=== PATIENT | female | born 1990 | race American Indian/Alaskan Native ===

== ENCOUNTER 2018-05-31 17:07 | Emergency (ER) | payer MEDICAID, OTHER ==
[2018-05-31 17:39] VITALS: BP 116/73; PULSE 77; RESP 16; TEMP 98.3; O2SAT 98
--- NOTE | 2018-05-31 17:51 | ED PDOC ---
HPI: Skin/Bite Injury Time Seen by Provider: 05/31/18 17:40 Chief Complaint (Nursing): Abnormal Skin Integrity Chief Complaint (Provider): Dryness and Discoloration to Face History Per: Patient History/Exam Limitations: no limitations Onset/Duration Of Symptoms: Days (x1 week) Current Symptoms Are (Timing): Still Present Additional Complaint(s): 27 year old female with pmhx of eczema presents to the ED for evaluation of dryness and itchiness to her face for the past week associated with dark discoloration around the sides of her lips. She notes that she has had this before and her PMD usually prescribes Hydrocortisone Valerate, but he recently and she has been unable to find a new doctor. Patient is requesting a script, and denies any other complaints. PMD: none provided Past Medical History Reviewed: Historical Data, Nursing Documentation, Vital Signs Vital Signs: Last Vital Signs Temp 98.3 F 05/31/18 17:39 Pulse 77 05/31/18 17:39 Resp 16 05/31/18 17:39 BP 116/73 05/31/18 17:39 Pulse Ox 98 05/31/18 17:39 - Medical History Other PMH: eczema - Surgical History Surgical History: No Surg Hx - Family History Family History: States: Unknown Family Hx - Immunization History Hx Tetanus Toxoid Vaccination: No Hx Pneumococcal Vaccination: No - Home Medications Home Medications: Ambulatory Orders Medication Instructions Recorded Ibuprofen [Motrin] 600 mg PO TID 12/05/14 oxyCODONE/Acetaminophen [Percocet 1 ea PO Q6 PRN #8 tab 12/06/14 5/325 mg Tab] Nitrofurantoin Macrocrystal 100 mg PO BID 09/05/15 [Nitrofurantoin] Hydrocortisone Valerate 15 gm TP DAILY #1 tube 05/31/18 - Allergies Allergies/Adverse Reactions: Allergies Allergy/AdvReac Type Severity Reaction Status Date / Time No Known Allergies Allergy Verified 12/05/14 21:01 Review of Systems ROS Statement: Except As Marked, All Systems Reviewed And Found Negative Skin: Positive for: Other (dryness and itchiness to face with dark pigmentation) Physical Exam - Reviewed Nursing Documentation Reviewed: Yes Vital Signs Reviewed: Yes - Physical Exam Appears: Positive for: No Acute Distress Head Exam: Positive for: ATRAUMATIC, NORMOCEPHALIC Skin: Positive for: Rash (dry skin noted to face - around mouth and cheeks with dark pigmentation; otherwise no break in skin integrity) Cardiovascular/Chest: Positive for: Regular Rate, Rhythm Respiratory: Positive for: Normal Breath Sounds. Negative for: Respiratory Distress Neurological/Psych: Positive for: Awake, Alert, Oriented (x3) - ECG O2 Sat by Pulse Oximetry: 98 (RA) Pulse Ox Interpretation: Normal Medical Decision Making Medical Decision Making: Time: 1744 Initial Impression: eczema Initial Plan: --Script for Hydrocortisone Valerate given and advised to follow up with a tube teller. Return parameters discussed and patient verbalized agreement and understanding. All questions answered. Stable for discharge. Scribe Attestation: Documented by Marichuy Moy, acting as a scribe for Anne Velazco NP. Provider Scribe Attestation: All medical record entries made by the Scribe were at my direction and personally dictated by me. I have reviewed the chart and agree that the record accurately reflects my personal performance of the history, physical exam, medical decision making, and the department course for this patient. I have also personally directed, reviewed, and agree with the discharge instructions and disposition. Disposition - Clinical Impression Clinical Impression: Eczema - Patient ED Disposition Is Patient to be Admitted: No Counseled Patient/Family Regarding: Diagnosis, Rx Given - Disposition Disposition: Routine/Home Disposition Time: 17:45 Condition: GOOD Prescriptions: Hydrocortisone Valerate 15 gm TP DAILY #1 tube Instructions: Eczema (Atopic Dermatitis) (DC) Print Language: WOLOF - POA Present On Arrival: None
== END 2018-05-31 18:17 | disposition home or self-care (01) ==
LOC: H.ER 17:07
DX: L30.9 Dermatitis, unspecified (principal)

== ENCOUNTER 2018-06-01 15:59 | Emergency (ER) | payer MEDICAID ==
[2018-06-01 16:05] VITALS: BP 107/74; PULSE 76; RESP 16; TEMP 98.5; O2SAT 98
[2018-06-01] MEDS ORDERED: Naproxen 500 MG TAB PO ONE ×2 (16:13→16:20)
--- NOTE | 2018-06-01 16:49 | ED PDOC ---
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 Patient states after pulling the stretcher she felt pain on the volar surface of her right wrist and lower back. Patient claims the pain is not radiating. Patient denies blunt trauma, numbness, tingling, incontinence, hematuria, dysuria, and abdominal pain. PCP: None Provided Past Medical History Reviewed: Historical Data, Nursing Documentation, Vital Signs Vital Signs: Last Vital Signs Temp 98.5 F 06/01/18 16:02 Pulse 76 06/01/18 16:02 Resp 16 06/01/18 16:02 BP 107/74 06/01/18 16:02 Pulse Ox 98 06/01/18 16:02 - Medical History PMH: No Chronic Diseases Denies: Chronic Kidney Disease - Surgical History Surgical History: No Surg Hx - Family History Family History: States: Unknown Family Hx - Immunization History Hx Tetanus Toxoid Vaccination: No Hx Pneumococcal Vaccination: No - Home Medications Home Medications: Ambulatory Orders Medication Instructions Recorded Ibuprofen [Motrin] 600 mg PO TID 12/05/14 oxyCODONE/Acetaminophen [Percocet 1 ea PO Q6 PRN #8 tab 12/06/14 5/325 mg Tab] Nitrofurantoin Macrocrystal 100 mg PO BID 09/05/15 [Nitrofurantoin] Hydrocortisone Valerate 15 gm TP DAILY #1 tube 05/31/18 Cyclobenzaprine [Cyclobenzaprine 10 mg PO Q8 PRN #10 tab 06/01/18 HCl] Naproxen [Naprosyn] 500 mg PO BID PRN #10 tab 06/01/18 - Allergies Allergies/Adverse Reactions: Allergies Allergy/AdvReac Type Severity Reaction Status Date / Time No Known Allergies Allergy Verified 06/01/18 16:02 Review of Systems ROS Statement: Except As Marked, All Systems Reviewed And Found Negative Gastrointestinal: Negative for: Abdominal Pain Genitourinary Female: Negative for: Dysuria, Incontinence, Hematuria Musculoskeletal: Positive for: Back Pain (lower), Other (right wrist PAIN) Neurological: Negative for: Numbness (or tingling) Physical Exam - Reviewed Nursing Documentation Reviewed: Yes Vital Signs Reviewed: Yes - Physical Exam Appears: Positive for: No Acute Distress Head Exam: Positive for: ATRAUMATIC, NORMAL INSPECTION, NORMOCEPHALIC Gastrointestinal/Abdominal: Positive for: Normal Exam, Soft. Negative for: Tenderness Back: Positive for: Normal Inspection, Other (minimal paralumbar tenderness). Negative for: L CVA Tenderness, R CVA Tenderness, Vertebral Tenderness Extremity: Positive for: Normal ROM, Capillary Refill (less than 2 seconds), Other (minimal right volar tenderness; equal natural fabricator strength bilaterally). Negative for: Deformity, Swelling (or break in skin integrity) Neurological/Psych: Positive for: Alert, Oriented (x3) - ECG O2 Sat by Pulse Oximetry: 98 (RA) Pulse Ox Interpretation: Normal - Radiology X-Ray: Interpreted by Me (Wrist/LS spine x-ray) X-Ray Interpretation: No Acute Disease Medical Decision Making Medical Decision Making: Time: 161 Impression: Wrist and Lower Back Injury Plan: Urine Naproxen 500 mg PO LS Spine AP/LAT [Rad] Wrist, Right 3 Views [Rad] Wrist immobilized in preformed wrist splint applied by corrosion control technician. Advised to f/u with [facility] for further evaluation but is to return to ED immediately if symptoms worsen. Scribe Attestation: Documented by Kuldip Chambers, acting as a scribe Boni Yap PA-C. Provider Scribe Attestation: All medical record entries made by the Scribe were at my direction and personally dictated by me. I have reviewed the chart and agree that the record accurately reflects my personal performance of the history, physical exam, medical decision making, and the department course for this patient. I have also personally directed, reviewed, and agree with the discharge instructions and disposition. Disposition - Clinical Impression Clinical Impression: Wrist sprain, Low back pain - Patient ED Disposition Is Patient to be Admitted: No - Disposition Referrals: Leighann Dumont [Outside] Disposition: Routine/Home Disposition Time: 17:15 Condition: STABLE Additional Instructions: FOLLOW UP WITH [facility] TOMORROW WITHOUT FAIL RETURN TO ED IMMEDIATELY IF SYMPTOMS WORSEN TORIBIO MYERS, thank you for letting us take care of you today. Your provider was Rashad Stockton III, DO and you were treated for W/C RT WRIST/BACK PAIN. The emergency medical care you received today was directed at your acute symptoms. If you were prescribed any medication, please fill it and take as directed. It may take several days for your symptoms to resolve. Return to the Emergency Department if your symptoms worsen, do not improve, or if you have any other problems. Please contact your doctor or call one of the physicians/clinics you have been referred to that are listed on the Patient Visit Information form that is included in your discharge packet. Bring any paperwork you were given at discharge with you along with any medications you are taking to your follow up visit. Our treatment cannot replace ongoing medical care by a primary care provider outside of the emergency department. Thank you for allowing the [facility] team to be part of your care today. If you had an X-Ray or CT scan: A Radiologist will review the ED reading if any change in treatment is needed we will contact you. If you had a blood, urine, or wound culture: It will take several days for the results, if any change in treatment is needed we will contact you. If you had an STI test: It will take 48 hours for the results. Please call after 1 week if you have not heard back. Prescriptions: Cyclobenzaprine [Cyclobenzaprine HCl] 10 mg PO Q8 PRN #10 tab PRN Reason: Muscle Spasm Naproxen [Naprosyn] 500 mg PO BID PRN #10 tab PRN Reason: Pain Instructions: Low Back Pain (DC), Wrist Sprain (DC) Forms: [employer] (Latvian), [facility] ED School/Work Excuse Print Language: BANGLADESHI
--- NOTE | 2018-06-01 17:32 | RAD ---
Date of service: 06/01/2018 PROCEDURE: Radiographs of the Lumbar Spine. HISTORY: trauma COMPARISON: No prior. TECHNIQUE: 5 views obtained. FINDINGS: BONES: Normal alignment. No listhesis. No fracture. DISC SPACES: Unremarkable. OTHER FINDINGS: None. IMPRESSION: Unremarkable radiographs of the lumbar spine.
--- NOTE | 2018-06-01 17:32 | RAD ---
Date of service: 06/01/2018 PROCEDURE: Right Wrist Radiographs. HISTORY: trauma COMPARISON: None. TECHNIQUE: 4 views obtained. FINDINGS: BONES: Normal. No fracture. JOINTS: Normal. No dislocation. SOFT TISSUES: Normal. OTHER FINDINGS: None. IMPRESSION: Normal right wrist radiographs.
== END 2018-06-01 18:14 | disposition home or self-care (01) ==
LOC: H.ER 15:59
DX: M25.531 Pain in right wrist (principal); S63.501A Unspecified sprain of right wrist, initial encounter; M54.5 Low back pain; X50.0XXA Overexertion from strenuous movement or load, initial encounter; Y93.F9 Activity, other caregiving; Y92.239 Unspecified place in hospital as the place of occurrence of the external cause; Y99.0 Civilian activity done for income or pay; S39.92XA Unspecified injury of lower back, initial encounter